=== PATIENT | male | born 1995 | race Caucasian/White ===

== ENCOUNTER 2018-10-27 23:46 | Emergency (ER) | payer SELFPAY ==
[~2018-10-27] VITALS: Ht 165.1 cm; Wt 57.6 kg
[2018-10-27 23:59] VITALS: Ht 165.1 cm; Wt 57.6 kg
[2018-10-28 03:06] LABS: UA SPECIFIC GRAVITY 1.025 (1.005-1.035); microscopic required? YES; urine erythrocyte NEGATIVE (NEGATIVE)
[2018-10-28 03:13] LABS: BASOPHIL % 0.2 % (0-2); PLATELET COUNT 253 x10^3mcL (130-400); RED CELL DISTRIBUTION WIDTH 13.9 % (11.5-14.5)
[2018-10-28 03:38] LABS: CALCIUM 10.5 mg/dL (8.5-10.1); CARBON DIOXIDE 26.1 mmol/L (21-32); CHLORIDE SERUM 100 mmol/L (98-107); CREATININE SERUM 1.1 mg/dL (0.7-1.3); GFR1 > 60 mL/min; GLUCOSE SERUM 130 mg/dL (74-106); POTASSIUM SERUM 4.6 mmol/L (3.5-5.1); SODIUM SERUM 140 mmol/L (136-145)
[2018-10-28 03:42] LABS: ALKALINE PHOSPHATASE 127 U/L (46-116); ALT/SGPT 46 U/L (16-63); AST/SGOT 21 U/L (15-37); BILIRUBIN TOTAL 0.87 mg/dL (0.20-1.00); LIPASE 64 IU/L (73-393)
[2018-10-28 03:43] LABS: ALBUMIN 5.1 g/dL (3.4-5.0); TOTAL PROTEIN, SERUM 9.7 g/dL (6.4-8.2)
[2018-10-28 05:15] VITALS: BP 127/86
== END 2018-10-28 05:15 | disposition home or self-care (01) ==
LOC: ED 23:46
PROVIDERS: Emergency Medicine
DX: N39.0 Urinary tract infection, site not specified (principal)
CPT/HCPCS: J0696; J1885; J2405; J7030

== ENCOUNTER 2019-07-19 19:56 | Emergency (ER) | payer MEDICAID ==
[~2019-07-19] VITALS: Ht 167.6 cm; Wt 62.6 kg
[2019-07-19 20:04] VITALS: Ht 167.6 cm; Wt 62.6 kg
[2019-07-19 22:25] VITALS: BP 113/54
== END 2019-07-19 22:25 | disposition home or self-care (01) ==
LOC: ED 19:56
DX: R50.9 Fever, unspecified (principal); R05 Cough; Z13.9 Encounter for screening, unspecified
CPT/HCPCS: Q0092

== ENCOUNTER 2019-10-22 10:24 | Emergency (ER) | payer MEDICAID ==
[~2019-10-22] VITALS: Ht 162.6 cm; Wt 64.9 kg
[2019-10-22 10:36] VITALS: Ht 162.6 cm; Wt 64.9 kg
[2019-10-22 11:48] LABS: BASOPHIL % 0.5 % (0-2); PLATELET COUNT 199 x10^3mcL (130-400); RED CELL DISTRIBUTION WIDTH 13.8 % (11.5-14.5)
[2019-10-22 12:00] LABS: CALCIUM 8.3 mg/dL (8.5-10.1); CARBON DIOXIDE 26.6 mmol/L (21-32); CHLORIDE SERUM 104 mmol/L (98-107); CREATININE SERUM 0.8 mg/dL (0.7-1.3); GFR1 > 60 mL/min; GLUCOSE SERUM 87 mg/dL (74-106); POTASSIUM SERUM 4.3 mmol/L (3.5-5.1); SODIUM SERUM 139 mmol/L (136-145)
[2019-10-22 12:03] VITALS: BP 127/80
[2019-10-22 12:05] LABS: ALBUMIN 3.7 g/dL (3.4-5.0); ALKALINE PHOSPHATASE 82 U/L (46-116); ALT/SGPT 46 U/L (16-63); AST/SGOT 29 U/L (15-37); BILIRUBIN TOTAL 0.4 mg/dL (0.20-1.00); LIPASE 52 IU/L (73-393); TOTAL PROTEIN, SERUM 7.2 g/dL (6.4-8.2)
== END 2019-10-22 12:50 | disposition home or self-care (01) ==
LOC: ED 10:24
PROVIDERS: Emergency Medicine
DX: K59.00 Constipation, unspecified (principal); R10.30 Lower abdominal pain, unspecified; R11.0 Nausea
CPT/HCPCS: J2405; Q0092

== ENCOUNTER 2020-01-05 12:06 | Emergency (ER) | payer SELFPAY ==
[~2020-01-05] VITALS: Ht 165.1 cm; Wt 59.0 kg
[2020-01-05 12:08] VITALS: BP 107/88; Ht 165.1 cm; Wt 59.0 kg
== END 2020-01-05 14:00 | disposition home or self-care (01) ==
LOC: ED 12:06
DX: U07.1 COVID-19 (principal); J02.8 Acute pharyngitis due to other specified organisms
CPT/HCPCS: U0003-CS